=== PATIENT | female | born 1955 | race Caucasian/White ===

== ENCOUNTER 2018-10-11 13:19 | Emergency (ER) | payer OTHER, SELFPAY ==
[~2018-10-11] VITALS: Ht 162.6 cm; Wt 62.4 kg
[2018-10-11 13:55] VITALS: BP 155/77
[2018-10-11] MEDS ORDERED: DEXAMETHASONE 4 MG TABLET ONE (14:19)
[2018-10-11] MEDS ORDERED: DEXAMETHASONE 4 MG TABLET PO ONE (14:30)
== END 2018-10-11 14:48 | disposition home or self-care (01) ==
LOC: ED 14:40
DX: J02.8 Acute pharyngitis due to other specified organisms (principal); B97.89 Other viral agents as the cause of diseases classified elsewhere; K13.79 Other lesions of oral mucosa
CPT/HCPCS: 87081; 87880; 99283